=== PATIENT | female | born 1995 | race Caucasian/White ===

== ENCOUNTER → 2018-07-11 19:55 | Emergency (ER) | payer SELFPAY ==
[~2018-07-11 19:55] MED LIST: Ibuprofen TAB* 600 MG PO ONE
--- NOTE | 2018-07-11 20:20 | ED ---
Lower Extremity - HPI Summary HPI Summary: Patient complains of stubbing fifth digit of left foot on concrete step with subsequent deformity at 745pm tonight. Denies any other pain injury or symptoms. Has not taken any medication for pain. - History of Current Complaint Chief Complaint: EDExtremityLower Stated Complaint: POSS BROKEN TOE PER PT Time Seen by Provider: 07/11/18 20:11 Hx Obtained From: Patient Mechanism Of Injury: Blunt Trauma Onset of Pain: Immediate Onset/Duration: Minutes Severity Initially: Severe Severity Currently: Severe Pain Intensity: 10 Pain Scale Used: 0-10 Numeric Timing: Constant Location: Is Discrete @ Character Of Pain: Sharp, Throbbing Associated Signs And Symptoms: Positive: Other - Deformity Aggravating Factor(s): Movement Able to Bear Weight: Yes - Allergies/Home Medications Allergies/Adverse Reactions: Allergies Allergy/AdvReac Type Severity Reaction Status Date / Time No Known Allergies Allergy Verified 07/11/18 20:02 PMH/Surg Hx/FS Hx/Imm Hx Endocrine/Hematology History: Denies: Hx Anticoagulant Therapy Cardiovascular History: Denies: Hx Pacemaker/ICD History: Denies: Hx Dialysis Sensory History: Denies: Hx Eye Prosthesis Opthamlomology History: Denies: Hx Legally Blind EENT History: Denies: Hx Deafness Neurological History: Denies: Hx Dementia Psychiatric History: Denies: Hx Autism Infectious Disease History: No Infectious Disease History: Denies: Traveled Outside the [place] in Last 30 Days - Social History Alcohol Use: None Substance Use Type: Reports: None Smoking Status (MU): Never Smoked Tobacco Review of Systems Constitutional: Negative Eyes: Negative ENT: Negative Cardiovascular: Negative Respiratory: Negative Gastrointestinal: Negative Genitourinary: Negative Musculoskeletal: Other Skin: Negative Neurological: Negative Psychological: Normal All Other Systems Reviewed And Are Negative: Yes Physical Exam - Summary Physical Exam Summary: Fifth digit of left foot appears to be displaced laterally. No erythema, ecchymosis, swelling noted. No trauma noted to toenail. PMS intact on fifth digit. No pain with palpation of foot or other digits. Pain with palpation of fifth digit. Triage Information Reviewed: Yes Vital Signs On Initial Exam: Initial Vitals Temp Pulse Resp BP Pulse Ox 100 F 115 20 125/104 99 07/11/18 20:02 07/11/18 20:02 07/11/18 20:02 07/11/18 20:02 07/11/18 20:02 Vital Signs Reviewed: Yes Appearance: Positive: Well-Appearing Skin: Positive: Warm Head/Face: Positive: Normal Head/Face Inspection Eyes: Positive: Normal Neck: Positive: Supple Respiratory/Lung Sounds: Positive: Clear to Auscultation Cardiovascular: Positive: Normal Abdomen Description: Positive: Nontender Musculoskeletal: Positive: Normal Neurological: Positive: Normal Psychiatric: Positive: Normal AVPU Assessment: Alert - Larisa Coma Scale Best Eye Response: 4 - Spontaneous Best Motor Response: 6 - Obeys Commands Best Verbal Response: 5 - Oriented Coma Scale Total: 15 Diagnostics - Vital Signs Vital Signs Temp Pulse Resp BP Pulse Ox 07/11/18 20:02 100 F 115 20 125/104 99 - Laboratory Lab Statement: Any lab studies that have been ordered have been reviewed, and results considered in the medical decision making process. Lower Extremity Course/Dx - Course Course Of Treatment: Patient complains of having fifth digit of left foot on concrete step with subsequent deformity at 745pm tonight. Denies any other pain injury or symptoms. Physical exam:Fifth digit of left foot appears to be displaced laterally. No erythema, ecchymosis, swelling noted. No trauma noted to toenail. PMS intact on fifth digit. No pain with palpation of foot or other digits. Pain with palpation of fifth digit. Vital signs within normal limits. X-ray positive for proximal phalange fracture of fifth digit of left foot. Toe abdirahman taped to the fourth digit. Placed in postop shoe. Patient was given ibuprofen 600 mg and ice pack, and advised to do same at home. Patient's friend irritated narcotics were not provided for patient's pain. - Diagnoses Provider Diagnoses: Toe fracture, left Discharge - Sign-Out/Discharge Documenting (check all that apply): Patient Departure Patient Received Moderate/Deep Sedation with Procedure: No - Discharge Plan Condition: Stable Disposition: HOME Patient Education Materials: Toe Fracture (ED) Referrals: No Primary Care Phys,NOPCP [Primary Care Provider] - Additional Instructions: Ice and ibuprofen for pain. Keep toe protected in comfortable shoe. Pain should improve over the next week to 2 weeks. Return to the ED for any new or worsening symptoms. - Billing Disposition and Condition Condition: STABLE Disposition: Home
[2018-07-11 20:55] VITALS: BP 122/74
--- OUTSIDE RECORDS SUMMARY | 2018-07-11 20:58 | XMS REPORT | Continuity of Care Document ---
:1995 External Reference #:[id number] Author Name Chelsey Lerner MD Address [address] [place] [address] Care Team Providers Name Role Phone Chelsey Lerner MD Care Team Information Conference Organizer Unavailable Payers Date Identification Numbers Payment Provider Subscriber Policy Number: [id number] Jcarlos BC/BS [facility] Aaliyah Geller PayID: [id number] [address] [address] [place] [address] Advance Directives Description No Information Available Problems Description No Information Family History Date Family Member(s) Observation Comments Father Diabetes Mother Hypothyroidism Siblings None Paternal Grandfather due to Unknown Causes () Paternal Grandmother due to Unknown Causes () Maternal Grandfather due to Cancer, Brain () Maternal Grandmother Hypothyroidism Social History Type Date Description Comments Sex Unknown Education Highest level completed, Bachelor's Degree Marital Status Single Lives With Alone Diet Patient is a vegetarian Occupation Marketing Tobacco Use Start: Unknown Never Smoked Cigarettes ETOH Use Currently consumes alcohol Recreational Drug Use Denies Drug Use Tobacco Use Start: Unknown Patient has never smoked Smoking Status Reviewed: 07/11/18 Patient has never smoked Exercise Type/Frequency Exercises regularly Seat Belt/Car Seat Always uses seat belt Currently Active Patient is currently sexually active Contraceptive Methods Nexplanon Contraceptive Methods Current methods include condoms STD's No STD History Allergies, Adverse Reactions, Alerts Description No Known Drug Allergies Medications Active Medications SIG Qnty Indications Ordering Provider Date Lo Loestrin Fe take 1 tab by 84tabs Chelsey Lerner MD 07/11/2018 1mg-10 mcg / mouth every day 10 mcg Tablets Levothyroxine Sodium 1 by mouth Unknown 25mcg every day Tablets Multivitamin Adult 1 po qd Unknown Tablets Fish Oil 1 by mouth Unknown 1000mg Capsules every day Vitamin D3 take one tablet Unknown 1000Unit by mouth daily. Capsules Immunizations Description No Information Available Vital Signs Date Vital Result Comment 07/11/2018 8:24am BP Systolic 118 mmHg BP Diastolic 80 mmHg Height 64.5 inches 5'4.50" Weight 186.00 lb BMI (Body Mass Index) 31.4 kg/m2 Last Menstrual Period 1506281 0 Results Description No Information Available Procedures Date Code Description Status 07/11/2018 95587 Remove Contraceptive Capsule Completed Encounters Description No Information Available Plan of Treatment Future Appointment(s):08/21/2018 8:00 am - Chelsey Lerner MD at [facility] 10:15 am - Chelsey Lerner MD at [facility]
== END | disposition home or self-care (01) ==
LOC: ED 19:55
DX: S92.522A Displaced fracture of middle phalanx of left lesser toe(s), initial encounter for closed fracture (principal); W22.09XA Striking against other stationary object, initial encounter; Y93.01 Activity, walking, marching and hiking
CPT/HCPCS: 99282; A9270-GY